=== PATIENT | female | born 1975 | race Caucasian/White ===

== ENCOUNTER → 2017-03-03 | Outpatient (CLI) | payer BC ==
[~2017-03-03] MED LIST: BYSTOLIC2.5 MG; NORCO 325 MG-51 TAB PO; NORCO 325 MG-7.1 TAB PO; PREDNISONE20 MG PO; SYNTHROID0.112 MG/T PO; TOPROL XL 25MG25 MG PO; ULTRAM 50MG TAB50 MG PO
== END ==
LOC: MC.RAD 08:00
DX: Z09 Encounter for follow-up examination after completed treatment for conditions other than malignant neoplasm (principal); N60.11 Diffuse cystic mastopathy of right breast; Z98.82 Breast implant status

== ENCOUNTER 2017-04-05 17:34 | Emergency (ER) | payer BC ==
[~2017-04-05] VITALS: Ht 157.5 cm; Wt 53.6 kg
[2017-04-05 17:43] VITALS: TEMP 98
[2017-04-05 18:16] LABS: BASO % 0.3 % (0.0-2.0); EOS # 0.1 (0.0-0.7); EOS % 1.8 % (0-4.0); GRAN # 3.7 (1.4-6.5); GRAN % 52.2 % (42.2-75.2); HEMATOCRIT 40.6 % (37.0-47.0); LYMPH # 2.8 (1.2-3.4); LYMPH % 39.7 % (20.0-51.0); MEAN CELL VOLUME 86 fl (80.0-100.0); MEAN CORPUSCULAR HEMOGLOBIN 28 pg (27.0-31.0); MEAN CORPUSCULAR HGB CONC 32 g/dl (33.0-37.0); MEAN PLATELET VOLUME 9.8 fl (7.4-10.4); MONO # 0.4 (0.1-0.6); MONO % 5.9 % (1.7-9.3); PLATELET COUNT 235 K/mm3 (130-400); RED BLOOD COUNT 4.71 M/mm3 (4.10-5.30); REDCELL DISTRIBUTION WIDTH-CV 12.1 % (11.5-14.5); WHITE BLOOD COUNT 7.1 K/mm3 (4.8-10.8)
[2017-04-05 18:34] LABS: ADJUSTED CALCIUM 8.8 mg/dL (8.4-10.2); ALANINE AMINOTRANSFERASE 14 U/L (9-52); ALBUMIN 4.6 gm/dL (3.5-5.0); ALKALINE PHOSPHATASE 40 U/L (50-136); ANION GAP 14 mmol/L (7-16); BILIRUBIN,TOTAL 0.5 mg/dL (0.0-1.0); BLOOD UREA NITROGEN 11 mg/dL (7-17); CALCIUM 9.3 mg/dL (8.4-10.2); CARBON DIOXIDE 24 mmol/L (22-30); CHLORIDE 104 mmol/L (98-107); CREATINE KINASE 82 U/L (30-135); CREATININE, serum 0.84 mg/dL (0.52-1.25); GLUCOSE 88 mg/dL (74-106); LIPASE 166 U/L (23-300); POTASSIUM 3.8 mmol/L (3.4-5.0); SODIUM 141 mmol/L (137-145); TOTAL PROTEIN 7.8 gm/dL (6.4-8.2)
[2017-04-05 18:40] LABS: B-TYPE NATRIURETIC PEPTIDE 53 pg/mL (0-125)
[2017-04-05 18:42] LABS: C-REACTIVE PROTEIN < 0.5 mg/dL (0.0-0.9); TROPONIN-I < 0.012 ng/mL (0.000-0.034)
[2017-04-05 19:32] LABS: ERYTHROCYTE SEDIMENTATION RATE 2 mm/hr (0-20)
[2017-04-05 19:48] VITALS: BP 108/73; PULSE 56
== END 2017-04-05 20:07 | disposition home or self-care (01) ==
LOC: COL.ER 17:34
PROVIDERS: Emergency Medicine
DX: R07.9 Chest pain, unspecified (principal); R06.02 Shortness of breath
CPT/HCPCS: J1885

== ENCOUNTER → 2017-09-05 | Outpatient (CLI) | payer BC ==
[2017-09-05 12:26] LABS: BASO % 0.4 % (0.0-2.0); EOS # 0.1 (0.0-0.7); EOS % 1.1 % (0-4.0); GRAN # 3.5 (1.4-6.5); GRAN % 63.1 % (42.2-75.2); HEMATOCRIT 43.3 % (37.0-47.0); HEMOGLOBIN 13.8 g/dl (12.5-16.0); LYMPH # 1.6 (1.2-3.4); LYMPH % 29.7 % (20.0-51.0); MEAN CELL VOLUME 87 fl (80.0-100.0); MEAN CORPUSCULAR HEMOGLOBIN 28 pg (27.0-31.0); MEAN CORPUSCULAR HGB CONC 32 g/dl (33.0-37.0); MEAN PLATELET VOLUME 9.5 fl (7.4-10.4); MONO # 0.3 (0.1-0.6); MONO % 5.3 % (1.7-9.3); PLATELET COUNT 255 K/mm3 (130-400); WHITE BLOOD COUNT 5.5 K/mm3 (4.8-10.8)
[2017-09-05 12:41] LABS: ADJUSTED CALCIUM 8.8 mg/dL (8.4-10.2); ALANINE AMINOTRANSFERASE 15 U/L (9-52); ALBUMIN 4.6 gm/dL (3.5-5.0); ALKALINE PHOSPHATASE 48 U/L (50-136); ANION GAP 12 mmol/L (7-16); BILIRUBIN,TOTAL 0.6 mg/dL (0.0-1.0); BLOOD UREA NITROGEN 10 mg/dL (7-17); CALCIUM 9.3 mg/dL (8.4-10.2); CARBON DIOXIDE 25 mmol/L (22-30); CHLORIDE 105 mmol/L (98-107); CREATININE, serum 0.91 mg/dL (0.52-1.25); GLUCOSE 78 mg/dL (74-106); LIPASE 168 U/L (23-300); POTASSIUM 4.3 mmol/L (3.4-5.0); SODIUM 142 mmol/L (137-145)
[2017-09-05 12:42] LABS: C-REACTIVE PROTEIN < 0.5 mg/dL (0.0-0.9)
[2017-09-05 12:59] LABS: ERYTHROCYTE SEDIMENTATION RATE 2 mm/hr (0-20)
== END ==
LOC: COL.RAD 11:15 → COL.LAB 11:15
PROVIDERS: Internal Medicine
DX: N83.201 Unspecified ovarian cyst, right side (principal); Z90.710 Acquired absence of both cervix and uterus; Z90.49 Acquired absence of other specified parts of digestive tract

== ENCOUNTER → 2017-09-30 | Outpatient (CLI) | payer BC | LOC: MC.RAD 16:54 | DX: Z12.31 Encounter for screening mammogram for malignant neoplasm of breast (principal); N60.11 Diffuse cystic mastopathy of right breast; Z98.82 Breast implant status ==

== ENCOUNTER → 2018-09-29 | Outpatient (CLI) | payer BC | LOC: COL.RAD 07:55 | DX: R10.2 Pelvic and perineal pain (principal); Z90.49 Acquired absence of other specified parts of digestive tract; Z90.710 Acquired absence of both cervix and uterus; Z90.721 Acquired absence of ovaries, unilateral ==

== ENCOUNTER → 2018-11-04 | Outpatient (CLI) | payer BC | LOC: MC.RAD 10:56 | DX: Z12.31 Encounter for screening mammogram for malignant neoplasm of breast (principal) ==

== ENCOUNTER → 2019-12-07 | Outpatient (CLI) | payer BC | LOC: MC.RAD 15:45 | DX: Z12.31 Encounter for screening mammogram for malignant neoplasm of breast (principal); Z98.82 Breast implant status ==

== ENCOUNTER → 2019-12-28 | Outpatient (CLI) | payer BC | LOC: COL.CARD 08:05 | DX: I95.9 Hypotension, unspecified (principal) ==

== ENCOUNTER → 2020-03-31 | Outpatient (CLI) | payer BC | LOC: COL.RAD 13:48 | DX: R10.32 Left lower quadrant pain (principal); Z90.49 Acquired absence of other specified parts of digestive tract; Z90.710 Acquired absence of both cervix and uterus; Z90.721 Acquired absence of ovaries, unilateral ==

== ENCOUNTER → 2020-12-14 | Outpatient (CLI) | payer BC ==
[2020-12-14 10:43] LABS: BASO % 0.3 % (0.0-2.0); EOS % 0.6 % (0-4.0); GRAN # 4.8 (1.4-6.5); GRAN % 67.3 % (42.2-75.2); HEMATOCRIT 42.2 % (37.0-47.0); HEMOGLOBIN 13.6 g/dl (12.5-16.0); LYMPH # 1.8 (1.2-3.4); LYMPH % 25.4 % (20.0-51.0); MEAN CELL VOLUME 87 fl (80.0-100.0); MEAN CORPUSCULAR HEMOGLOBIN 28 pg (27.0-31.0); MEAN CORPUSCULAR HGB CONC 32 g/dl (33.0-37.0); MEAN PLATELET VOLUME 9.7 fl (7.4-10.4); MONO # 0.4 (0.1-0.6); PLATELET COUNT 258 K/mm3 (130-400); RED BLOOD COUNT 4.88 M/mm3 (4.10-5.30); REDCELL DISTRIBUTION WIDTH-CV 12.1 % (11.5-14.5)
== END ==
LOC: COL.RAD 09:57
PROVIDERS: Family Medicine
DX: R07.89 Other chest pain (principal)

== ENCOUNTER → 2020-12-21 | Outpatient (CLI) | payer BC | LOC: MC.RAD 16:39 | DX: Z12.31 Encounter for screening mammogram for malignant neoplasm of breast (principal); Z98.82 Breast implant status ==

== ENCOUNTER 2021-01-23 06:26 | Emergency (ER) | payer BC ==
[~2021-01-23] VITALS: Ht 157.5 cm; Wt 56.4 kg
[2021-01-23 06:29] VITALS: TEMP 97.3
[2021-01-23] MEDS ORDERED: SYNTHROID0.125 MG/T PO (06:57)
[2021-01-23 06:59] LABS: BASO % 0.1 % (0.0-2.0); EOS # 0.1 (0.0-0.7); EOS % 1.4 % (0-4.0); GRAN # 3.8 (1.4-6.5); GRAN % 52.8 % (42.2-75.2); HEMATOCRIT 42.3 % (37.0-47.0); HEMOGLOBIN 14.2 g/dl (12.5-16.0); LYMPH # 2.8 (1.2-3.4); LYMPH % 38.8 % (20.0-51.0); MEAN CELL VOLUME 84 fl (80.0-100.0); MEAN CORPUSCULAR HEMOGLOBIN 28 pg (27.0-31.0); MEAN CORPUSCULAR HGB CONC 34 g/dl (33.0-37.0); MEAN PLATELET VOLUME 9.2 fl (7.4-10.4); MONO # 0.5 (0.1-0.6); MONO % 6.5 % (1.7-9.3); PLATELET COUNT 267 K/mm3 (130-400); RED BLOOD COUNT 5.02 M/mm3 (4.10-5.30); REDCELL DISTRIBUTION WIDTH-CV 12.7 % (11.5-14.5)
[2021-01-23] MEDS ORDERED: ZYRTEC5 MG PO (06:59)
[2021-01-23] MEDS ORDERED: FLONASEALLERGY NS (06:59)
[2021-01-23 07:13] LABS: ALANINE AMINOTRANSFERASE 10 U/L (4-34); ALBUMIN 4.4 gm/dL (3.5-5.0); ALKALINE PHOSPHATASE 45 U/L (50-136); ANION GAP 9 mmol/L (7-16); AST,SGOT 31 U/L (15-37); BILIRUBIN,TOTAL 0.8 mg/dL (0.0-1.0); BLOOD UREA NITROGEN 14 mg/dL (7-17); C-REACTIVE PROTEIN < 0.5 mg/dL (0.0-0.9); CALCIUM 9.4 mg/dL (8.4-10.2); CARBON DIOXIDE 22 mmol/L (22-30); CHLORIDE 105 mmol/L (98-107); CREATINE KINASE 134 U/L (30-135); CREATININE, serum 0.88 (0.52-1.25); GLUCOSE 106 mg/dL (74-106); MAGNESIUM 2.3 mg/dL (1.6-2.3); POTASSIUM 3.8 mmol/L (3.4-5.0); SODIUM 136 mmol/L (137-145); TOTAL PROTEIN 7.5 gm/dL (6.4-8.2)
[2021-01-23 07:21] LABS: ERYTHROCYTE SEDIMENTATION RATE 6 mm/hr (0-20)
[2021-01-23 07:23] LABS: TROPONIN-I < 0.012 ng/mL (0.000-0.035)
[2021-01-23] MEDS ORDERED: PREDNISONE10 MG PO (10:30)
[2021-01-23 10:58] VITALS: BP 102/51; PULSE 71
== END 2021-01-23 10:58 | disposition home or self-care (01) ==
LOC: COL.ER 06:26
PROVIDERS: Emergency Medicine
DX: R07.89 Other chest pain (principal); R06.02 Shortness of breath; R42 Dizziness and giddiness; E03.9 Hypothyroidism, unspecified; Z79.890 Hormone replacement therapy
CPT/HCPCS: A4614; J2060; J7030

== ENCOUNTER → 2021-03-13 | Outpatient (CLI) | payer BC ==
[~2021-03-13] MED LIST changes: +FLONASEALLERGY NS; +OXYCODONE H5 MG/5 ML PO; +PREDNISONE10 MG PO; +SINGULAIR4 MG/PACKE PO; +SYNTHROID0.125 MG/T PO; +ZYRTEC5 MG PO
--- NOTE | 2021-03-13 14:28 | NUR ---
PATIENT TAKEN INHALER THIS AM AND DUE TO THAT NEEDED TO RESCHEDULE APPOINTMENT. PT WHEN CALLING SCHEDULING SAID SHE TAKES 3 WEEK ALLERGY SHOTS. WE HAVE PATIENTS HOLD ALLERGY MEDICATION I CALLED TO VERIFY AND SEE IF WE SHOULD HOLD TILL A CERTAIN AMOUNT OF TIME. SPOKE WITH PULMONOLOGY OFFICE AND VERIFIED IT WAS OKAY FOR PATIENT TO STILL HAVE METHACHOLINE TEST WITH THESE SHOTS THEY SHOULD NOT EFFECT TEST.
== END ==
LOC: COL.PUL 08:17
DX: R06.02 Shortness of breath (principal)

== ENCOUNTER → 2021-03-29 | Outpatient (CLI) | payer BC | LOC: COL.PUL 06:29 | DX: R06.02 Shortness of breath (principal) | CPT/HCPCS: J7674 ==

== ENCOUNTER 2021-07-31 19:56 | Emergency (ER) | payer BC ==
[~2021-07-31] VITALS: Ht 157.5 cm; Wt 54.5 kg
[~2021-07-31 19:56] MED LIST changes: -OXYCODONE H5 MG/5 ML PO; -SINGULAIR4 MG/PACKE PO
[2021-07-31 20:32] VITALS: TEMP 97.3
[2021-07-31] MEDS ORDERED: SINGULAIR4 MG/PACKE PO (22:05)
[2021-07-31] MEDS ORDERED: OXYCODONE H5 MG/5 ML PO (22:19)
[2021-07-31 22:27] VITALS: BP 117/79; PULSE 91
== END 2021-07-31 22:28 | disposition home or self-care (01) ==
LOC: COL.ER 19:56
DX: S19.9XXA Unspecified injury of neck, initial encounter (principal); E03.9 Hypothyroidism, unspecified; Z79.890 Hormone replacement therapy; W51.XXXA Accidental striking against or bumped into by another person, initial encounter; Y93.68 Activity, volleyball (beach) (court)
CPT/HCPCS: J2270

== ENCOUNTER 2022-09-24 11:18 | Emergency (ER) | payer BC ==
[~2022-09-24 11:18] MED LIST changes: +OXYCODONE H5 MG/5 ML PO; +SINGULAIR4 MG/PACKE PO
[2022-09-24 11:20] VITALS: TEMP 98.7
[2022-09-24 12:17] LABS: COLLECTION METHOD CLEAN CATCH
[2022-09-24 12:22] LABS: BASO % 0.3 % (0.0-2.0); EOS % 0.5 % (0.0-4.0); GRAN # 5.1 K/mm3 (1.4-6.5); GRAN % 67.1 % (42.2-75.2); HEMATOCRIT 41.1 % (37.0-47.0); HEMOGLOBIN 13.3 g/dl (12.5-16.0); LYMPH # 1.9 K/mm3 (1.2-3.4); LYMPH % 25.5 % (20.0-51.0); MEAN CELL VOLUME 85 fl (80.0-100.0); MEAN CORPUSCULAR HEMOGLOBIN 27 pg (27-31); MEAN CORPUSCULAR HGB CONC 32 g/dl (33.0-37.0); MEAN PLATELET VOLUME 9.4 fl (7.4-10.4); MONO # 0.5 K/mm3 (0.1-0.6); MONO % 6.3 % (1.7-9.3); PLATELET COUNT 265 K/mm3 (130-400); RED BLOOD COUNT 4.86 M/mm3 (4.10-5.30); REDCELL DISTRIBUTION WIDTH-CV 11.5 % (11.5-14.5)
[2022-09-24 12:29] LABS: SQUAMOUS EPITHELIAL None Seen /hpf (0-10); URINE APPEARANCE Clear (CLEAR/HAZY); URINE BACTERIA None Seen /hpf (NONE SEEN); URINE BLOOD Negative (NEGATIVE); URINE COLOR Yellow (YELLOW); URINE GLUCOSE Negative (NEGATIVE); URINE KETONE Negative (NEGATIVE); URINE NITRATE Negative (NEGATIVE); URINE PROTEIN(semi-quant) Negative (NEGATIVE); URINE RBC 0-2 /hpf (0-2); URINE UROBILINOGEN 0.2 E.U/dL (0.2-1.0)
[2022-09-24 12:33] LABS: ALANINE AMINOTRANSFERASE 9 U/L (0-55); ALBUMIN 4.4 gm/dL (3.5-5.0); ALKALINE PHOSPHATASE 41 U/L (40-150); ANION GAP 9 mmol/L (7-16); AST,SGOT 21 U/L (5-34); BILIRUBIN,TOTAL 0.2 mg/dL (0.2-1.2); BLOOD UREA NITROGEN 10 mg/dL (7-19); C-REACTIVE PROTEIN 0.05 mg/dL (0.00-0.50); CALCIUM 9.3 mg/dL (8.4-10.2); CARBON DIOXIDE 24 mmol/L (22-29); CHLORIDE 106 mmol/L (98-107); CREATININE, serum 0.95 mg/dL (0.57-1.11); GLUCOSE 91 mg/dL (70-99); POTASSIUM 3.8 mmol/L (3.5-4.5); SODIUM 139 mmol/L (136-145); TOTAL PROTEIN 7.8 gm/dL (6.2-8.1)
[2022-09-24 12:38] LABS: TROPONIN-I < 0.010 ng/mL (0.00-0.033)
[2022-09-24 15:47] VITALS: BP 110/83; PULSE 64
== END 2022-09-24 15:47 | disposition home or self-care (01) ==
LOC: COL.ER 11:18
PROVIDERS: Nurse Practitioner
DX: R07.89 Other chest pain (principal)
CPT/HCPCS: J2270

== ENCOUNTER 2024-01-30 12:47 | Emergency (ER) | payer BC ==
[~2024-01-30] VITALS: Ht 160 cm; Wt 57.7 kg
[2024-01-30 12:56] VITALS: TEMP 97.9
[2024-01-30 13:58] LABS: BASO % 0.1 % (0.0-2.0); GRAN # 5.9 K/mm3 (1.4-6.5); GRAN % 87.6 % (42.2-75.2); HEMATOCRIT 41.3 % (37.0-47.0); HEMOGLOBIN 13.4 g/dl (12.5-16.0); LYMPH # 0.8 K/mm3 (1.2-3.4); LYMPH % 11.1 % (20.0-51.0); MEAN CELL VOLUME 89 fl (80.0-100.0); MEAN CORPUSCULAR HEMOGLOBIN 29 pg (27-31); MEAN CORPUSCULAR HGB CONC 32 g/dl (33.0-37.0); MEAN PLATELET VOLUME 9.1 fl (7.4-10.4); MONO # 0.1 K/mm3 (0.1-0.6); MONO % 0.9 % (1.7-9.3); PLATELET COUNT 299 K/mm3 (130-400); RED BLOOD COUNT 4.64 M/mm3 (4.10-5.30); REDCELL DISTRIBUTION WIDTH-CV 12.3 % (11.5-14.5)
[2024-01-30 14:05] LABS: ERYTHROCYTE SEDIMENTATION RATE 20 mm/hr (0-20)
[2024-01-30 14:19] LABS: ALBUMIN 4.6 gm/dL (3.5-5.0); BILIRUBIN,TOTAL 0.4 mg/dL (0.2-1.2); CALCIUM 9.2 mg/dL (8.4-10.2); CREATININE, serum 0.82 mg/dL (0.57-1.11); POTASSIUM 4.2 mmol/L (3.5-4.5); TOTAL PROTEIN 7.8 gm/dL (6.2-8.1)
[2024-01-30 15:36] LABS: C-REACTIVE PROTEIN 0.02 mg/dL (0.00-0.50); TROPONIN-I 0.014 ng/mL (0.00-0.033)
[2024-01-30 16:01] VITALS: BP 119/85; PULSE 64
== END 2024-01-30 16:10 | disposition home or self-care (01) ==
LOC: COL.ER 12:47
PROVIDERS: Nurse Practitioner
DX: M06.9 Rheumatoid arthritis, unspecified (principal); R07.89 Other chest pain; Z79.899 Other long term (current) drug therapy

== ENCOUNTER → 2024-05-05 | Outpatient (CLI) | payer BC | LOC: MC.RAD 07:28 | DX: Z12.31 Encounter for screening mammogram for malignant neoplasm of breast (principal) ==